=== PATIENT | male | born 1965 | race Caucasian/White ===

== ENCOUNTER 2019-11-17 13:47 | Emergency (ER) | payer OTHER ==
[~2019-11-17] VITALS: Ht 180.3 cm; Wt 104.3 kg
[~2019-11-17 13:47] MED LIST: Advil200 M1 PO; B-121000 MC1 SL; CHOL10002 PO; HYDPAM25 PO; Hair, Skin & N1 EACH PO; LISHYD2025 PO; LOVA40 PO; OMEPRAZOLE MAGN20 MG PO; TOCO400 PO; Tylophen500 MG PO
[2019-11-17] MEDS ORDERED: Hydrochlorothia25 MG PO (17:25)
[2019-11-17] MEDS ORDERED: HYDHCL25 PO (17:25)
[2019-11-17] MEDS ORDERED: HYDR1TAB94 PO (17:47)
== END 2019-11-17 18:11 | disposition home or self-care (01) ==
LOC: ER 13:47
DX: M51.16 Intervertebral disc disorders with radiculopathy, lumbar region (principal); R06.00 Dyspnea, unspecified; F17.210 Nicotine dependence, cigarettes, uncomplicated
CPT/HCPCS: 72148; 96372; 99283-25; J1170

== ENCOUNTER 2019-11-27 13:32 | Day surgery (SDC) | payer OTHER ==
[~2019-11-27] VITALS: Ht 180.3 cm; Wt 104.6 kg
[~2019-11-27 13:32] MED LIST changes: +HYDHCL25 PO; +HYDR1TAB94 PO; +Hydrochlorothia25 MG PO
[2019-11-27] MEDS ORDERED: CENTRUM SILVER1 EAC2 (14:02)
[2019-11-27] MEDS ORDERED: ALPR.25 (14:03)
[2019-11-27] MEDS ORDERED: DOXE10 (14:03)
[2019-11-27] MEDS ORDERED: ESCI20 (14:03)
[2019-11-27] MEDS ORDERED: ATOR20 (14:03)
[2019-11-27] MEDS ORDERED: GABA300 (14:04)
== END 2019-11-27 15:45 | disposition home or self-care (01) ==
LOC: ORSCSDS 13:32
PROVIDERS: Internal Medicine Gastroenterology
PROC: 0DBN8ZX Excision of Sigmoid Colon, Via Natural or Artificial Opening Endoscopic, Diagnostic (ICD-10-PCS; principal; 2019-11-27 14:45)
DX: Z12.11 Encounter for screening for malignant neoplasm of colon (principal); Z86.010 Personal history of colon polyps; K63.5 Polyp of colon; K57.30 Diverticulosis of large intestine without perforation or abscess without bleeding; G47.33 Obstructive sleep apnea (adult) (pediatric); E66.9 Obesity, unspecified; Z68.32 Body mass index [BMI] 32.0-32.9, adult; F17.210 Nicotine dependence, cigarettes, uncomplicated; Z79.899 Other long term (current) drug therapy
CPT/HCPCS: 88305; J2704; J7120

== ENCOUNTER 2021-12-21 18:23 | Inpatient (IN) | payer OTHER ==
[~2021-12-21] VITALS: Ht 180.3 cm; Wt 106.6 kg
[~2021-12-21 18:23] MED LIST changes: +ALPR.25; +ATOR20; +CENTRUM SILVER1 EAC2; +DOXE10; +ESCI20; +GABA300
[2021-12-21] MEDS ORDERED: DOXE10 PO (23:33)
--- NOTE | 2021-12-22 05:35 | NUR ---
SHIFT SUMMARY: AFTER ARRIVAL TO THE UNIT, PT HAS BEEN RESTING WELL. PT HAS COMPLAINED OF PAIN IN HIS RIBS AND CHEST SINCE ARRIVAL TO THE UNIT. PAIN HAS BEEN WELL MANAGED T/O THE SHIFT WITH EMAR ORDERS AND UNINTERRUPTED REST. PT WILL CALL ACCORDINLY AND WILL GET UP TO USE THE BATHROOM. URINAL IS AT BEDSIDE. CALL LIGHT IS WITHIN REACH.
[2021-12-22] MEDS ORDERED: Vitamin D1000 UNI1 PO (15:17)
[2021-12-22] MEDS ORDERED: Lisinopril-Hct1 EAC4 PO (15:18)
[2021-12-22] MEDS ORDERED: TOCO1000 PO (15:18)
[2021-12-22] MEDS ORDERED: IBUP200 PO (15:19)
[2021-12-22] MEDS ORDERED: ACET500 PO (15:20)
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
[2021-12-22] MEDS ORDERED: ATOR40TA PO (16:25)
[2021-12-22] MEDS ORDERED: THERA-D2000 UNIT PO (16:26)
[2021-12-22] MEDS ORDERED: ALPR.25 PO (16:27)
--- NOTE | 2021-12-23 07:37 | NUR ---
summary po pain meds effective. pt ambulatory.uses is. hoping for discharge today.
[2021-12-23] MEDS ORDERED: HYDR1TAB94 PO (10:22)
[2021-12-23] MEDS ORDERED: Robaxin750 MG PO (10:23)
--- NOTE | 2021-12-23 12:15 | NUR ---
DISCHARGE SUMMARY PATIENT ALERT AND ORIENTED THROUGHOUT SHIFT. TOLERATING REGULAR DIET AND LIQUIDS. INDEPENDENT IN ROOM. VOIDING WELL. PAIN TO STERNUM AND RIGHT RIBS CONTROLLED WITH PO PAIN MEDS. DISCHARGE ORDERS OBTAINED. DISCHARGE EDUCATION GIVEN ON NEW MEDSD, ACTIVITY, FOLLOW UP APPTS. PATIENT LEFT UNIT AT 1145 VIA WHEELCHAIR WITH SPOUSE FOR HOME.
== END 2021-12-23 11:51 | disposition home or self-care (01) | DRG 184 ==
LOC: ER 18:23 → SURS 18:24
PROVIDERS: ADMIT Surgery
DX: S22.41XA Multiple fractures of ribs, right side, initial encounter for closed fracture (principal); S22.20XA Unspecified fracture of sternum, initial encounter for closed fracture; S80.01XA Contusion of right knee, initial encounter; S50.811A Abrasion of right forearm, initial encounter; R91.8 Other nonspecific abnormal finding of lung field; I10 Essential (primary) hypertension; E78.5 Hyperlipidemia, unspecified; G47.00 Insomnia, unspecified; F39 Unspecified mood [affective] disorder; Z79.899 Other long term (current) drug therapy; F17.210 Nicotine dependence, cigarettes, uncomplicated; V49.9XXA Car occupant (driver) (passenger) injured in unspecified traffic accident, initial encounter; Y92.410 Unspecified street and highway as the place of occurrence of the external cause
CPT/HCPCS: 71045; 71260; 73562-RT; 74177; 96374-59; 96375-59; 96376; 99284-25; A9270; G0378; J1170; J1650; J2405; Q9967